=== PATIENT | female | born 1935 | race Caucasian/White ===

== ENCOUNTER 2016-12-29 14:34 | Inpatient (IN) | payer MEDICARE, OTHER ==
[~2016-12-29] VITALS: Ht 162.6 cm; Wt 39.2 kg
[~2016-12-29 14:34] MED LIST: ACET5SOL5 PO; ASPI81TA82 PO
[2016-12-29 14:36] VITALS: BP 116/59; PULSE 71; RESP 16; TEMP 98; O2SAT 97
[2016-12-29] MEDS ORDERED: SODIUM CHLOR 0.9% 1000 ML INJ 1,000 ML IV SCH (14:54)
[2016-12-29 15:00] VITALS: O2SAT 97
[2016-12-29] MEDS ORDERED: SODIUM CHLORIDE 0.9% FLUSH 5 ML FLUSH IV FLUSH PRN (15:00)
--- NOTE | 2016-12-29 15:02 | PD ---
HPI Chief Complaint: General Weakness Time Seen by Provider: 14:44 Travel History International Travel<30 days: No Contact w/Intl Traveler<30days: No History of Present Illness HPI Patient is a cachectic elderly female appearing older than stated age who presents the emergency department with daughter for generalized weakness. Daughter states that patient and her both have some degree of dementia. They live independently, though certainly are not thriving. They've attempted to get help for the 2 of them at home, but unsuccessfully given patient's 's paranoia. Patient herself, has been increasingly withdrawn and confused over the last 2 weeks. She is alert to self only, but not place or time. Daughter states at baseline she may not know the year, Pres. but would certainly know where she is. She's had several falls recently, unclear whether she hit her head but patient does complain of pain to the left occipital parietal region. Daughter notes patient was incontinent of stool and urine and laying in bed when she came to check on her today. Patient denies any complaints at this time. PFSH Past Medical History Hx Anticoagulant Therapy: No Arthritis: No Asthma: No Autoimmune Disease: No Blood Disorders: No Heart Rhythm Problems: No Cancer: No Cardiovascular Problems: Yes (CHOL) High Cholesterol: No Chemotherapy: No Chest Pain: No Congestive Heart Failure: No COPD: No Cerebrovascular Accident: No Diabetes: No Diminished Hearing: No Endocrine: No Gastrointestinal Disorders: No GERD: No Glaucoma: No Genitourinary: Yes Headaches: No Hepatitis: No Hiatal Hernia: No Hypertension: No Immune Disorder: No Implanted Vascular Access Dvce: No Musculoskeletal: No Neurologic: No Psychiatric: No Reproductive: No Respiratory: No Migraines: No Myocardial Infarction: No Radiation Therapy: No Seizures: No Sickle Cell Disease: No Sleep Apnea: No Thyroid Disease: No Ulcer: No ?: Not Past Surgical History Abdominal Surgery: No AICD: No Appendectomy: No Arteriovenous Shunt: No Cardiac Surgery: No Cholecystectomy: No Ear Surgery: No Endocrine Surgery: No Eye Surgery: No Genitourinary Surgery: No Gynecologic Surgery: No Insulin Pump: No Joint Replacement: No Oral Surgery: No Pacemaker: No Thoracic Surgery: No Social History Alcohol Use: No Tobacco Use: No Substance Use: No Allergies-Medications (Allergen,Severity, Reaction): Coded Allergies: No Known Allergies (Verified , 12/29/16) Reported Meds & Prescriptions Reported Meds & Active Scripts Active No Active Prescriptions or Reported Medications Review of Systems ROS Limitations: Altered Mental Status, Poor Historian Physical Exam Exam Limitations: Altered Mental Status, Poor Historian Narrative GENERAL: Cachectic elderly female with muscle wasting in no acute distress SKIN: Ecchymosis on the back, right shoulder of varying ages HEAD: Contusion to the left occipital parietal scalp Normocephalic. EYES: Pupils equal and round. No scleral icterus. No injection or drainage. ENT: No nasal bleeding or discharge. Mucous membranes dry NECK: Supple CARDIOVASCULAR: Regular rate and rhythm. No murmur appreciated. RESPIRATORY: No accessory muscle use. Clear to auscultation. Breath sounds equal bilaterally. GASTROINTESTINAL: Abdomen soft, minimal suprapubic tenderness to palpation without rebound or guarding, scaphoid abdomen MUSCULOSKELETAL: Moves all extremities normally. Dried old-appearing stool caked to the inside of the left leg. Movement of the extremities is intact, though weak with 4-5 strength diffusely. NEUROLOGICAL: Awake and alert to self only, does not know where she is, date, president. Motor grossly within normal limits. Normal speech. PSYCHIATRIC: Different given mental status Data Data Last Documented VS Vital Signs Date Time Temp Pulse Resp B/P Pulse Ox O2 Delivery O2 Flow Rate FiO2 12/29/16 15:00 97 Room Air 12/29/16 15:00 71 12/29/16 14:36 98.0 16 116/59 Orders Electrocardiogram (12/29/16 14:54) Ammonia (12/29/16 14:54) Complete Blood Count With Diff (12/29/16 14:54) Comprehensive Metabolic Panel (12/29/16 14:54) Creatine Kinase (Cpk) (12/29/16 14:54) Troponin I (12/29/16 14:54) Thyroid Stimulating Hormone (12/29/16 14:54) Urinalysis - C+S If Indicated (12/29/16 14:54) Ct Brain W/O Iv Contrast(Rout) (12/29/16 14:54) Ecg Monitoring (12/29/16 14:54) Iv Access Insert/Monitor (12/29/16 14:54) Cath For Specimen (12/29/16 14:54) Oximetry (12/29/16 14:54) Sodium Chloride 0.9% Flush (Ns Flush) (12/29/16 15:00) Sodium Chlor 0.9% 1000 Ml Inj (Ns 1000 M (12/29/16 14:54) Case Management Consult (12/29/16 ) Labs Laboratory Tests Test 12/29/16 12/29/16 14:50 14:55 White Blood Count 11.1 TH/MM3 Red Blood Count 3.86 MIL/MM3 Hemoglobin 12.3 GM/DL Hematocrit 36.0 % Mean Corpuscular Volume 93.2 FL Mean Corpuscular Hemoglobin 31.8 PG Mean Corpuscular Hemoglobin 34.1 % Concent Red Cell Distribution Width 12.5 % Platelet Count 286 TH/MM3 Mean Platelet Volume 8.9 FL Neutrophils (%) (Auto) 88.9 % Lymphocytes (%) (Auto) 8.3 % Monocytes (%) (Auto) 2.3 % Eosinophils (%) (Auto) 0.1 % Basophils (%) (Auto) 0.4 % Neutrophils # (Auto) 9.9 TH/MM3 Lymphocytes # (Auto) 0.9 TH/MM3 Monocytes # (Auto) 0.3 TH/MM3 Eosinophils # (Auto) 0.0 TH/MM3 Basophils # (Auto) 0.0 TH/MM3 CBC Comment DIFF FINAL Differential Comment Sodium Level 142 MEQ/L Potassium Level 2.8 MEQ/L Chloride Level 99 MEQ/L Carbon Dioxide Level 31.6 MEQ/L Anion Gap 11 MEQ/L Blood Urea Nitrogen 37 MG/DL Creatinine 1.60 MG/DL Estimat Glomerular Filtration 31 ML/MIN Rate Random Glucose 190 MG/DL Calcium Level 9.1 MG/DL Total Bilirubin 0.6 MG/DL Aspartate Amino Transf 20 U/L (AST/SGOT) Alanine Aminotransferase 15 U/L (ALT/SGPT) Ammonia 10 MCMOL/L Total Protein 6.9 GM/DL Albumin 3.3 GM/DL [facility] Medical Decision Making Medical Screen Exam Complete: Yes Emergency Medical Condition: Yes Medical Record Reviewed: Yes Differential Diagnosis 81-year-old female here with generalized weakness, confusion over the last 2 weeks. Patient is cachectic with muscle wasting, dry mucous membranes and very subtle bruising on exam. Differential includes closed head injury, skull fracture, ICH, dehydration, electrolyte abnormality, UTI, hyperammonemia, arrhythmia, thyroid abnormality, dementia. Narrative Course Patient placed on monitor, IV established and blood obtained. Given 1 L normal saline bolus. Twelve-lead EKG showed sinus rhythm without notable ST abnormalities, sinus arrhythmia. CBC, CMP, ammonia, CPK, troponin, TSH, urinalysis were ordered,. CT of the brain ordered. Results of these remain pending at time of dictation. Case management consulted to assist patient's daughter with coordinating care for patient and patient's who is also demented and unsafe to be at home independently. However for the time being daughter will be with patient's to assist him pending RODNEY. Patient signed out to oncoming provider waiting [facility] admission for altered mental status. Scripts No Active Prescriptions or Reported Meds Elle Souza MD December 29, 2016 15:02
[2016-12-29 15:27] LABS: AUTOMATED NEUTROPHIL # 9.9 TH/MM3 (1.8-7.7); BASOPHIL % 0.4 % (0.0-2.0); EOSINOPHIL % 0.1 % (0.0-4.0); HEMO FLAGS DIFF FINAL; LYMPH % 8.3 % (9.0-44.0); LYMPHOCYTE # 0.9 TH/MM3 (1.0-4.8); MEAN CELL VOLUME 93.2 FL (80.0-100.0); MEAN CORPUSCULAR HEMOGLOBIN 31.8 PG (27.0-34.0); MEAN CORPUSCULAR HGB CONC 34.1 % (32.0-36.0); MONO % 2.3 % (0.0-8.0); NEUT % 88.9 % (16.0-70.0); PLATELET COUNT 286 TH/MM3 (150-450); RED BLOOD COUNT 3.86 MIL/MM3 (4.00-5.30); RED CELL DISTRIBUTION WIDTH 12.5 % (11.6-17.2); WHITE BLOOD COUNT 11.1 TH/MM3 (4.0-11.0)
[2016-12-29 15:35] LABS: ALT (GPT) 15 U/L (10-53); ANION GAP 11 MEQ/L (5-15); AST (GOT) 20 U/L (15-37); BICARBONATE 31.6 MEQ/L (21.0-32.0); BLOOD UREA NITROGEN 37 MG/DL (7-18); CHLORIDE 99 MEQ/L (98-107); GLOMERULAR FILTRATION RATE 31 ML/MIN (>89); SODIUM (NA) 142 MEQ/L (136-145); TOTAL BILIRUBIN ADULT 0.6 MG/DL (0.2-1.0)
[2016-12-29 15:37] LABS: POTASSIUM 2.8 MEQ/L (3.5-5.1)
[2016-12-29 15:42] VITALS: BP 128/65; PULSE 58; RESP 18; O2SAT 98
[2016-12-29 15:43] LABS: ALKALINE PHOSPHATASE 167 U/L (45-117)
[2016-12-29 15:45] LABS: CREATINE KINASE 78 U/L (26-192)
--- NOTE | 2016-12-29 15:45 | RADHPO ---
EXAM DATE/TIME: 12/29/2016 15:24 [facility] COMPARISON: No previous studies available for comparison. INDICATIONS : Altered mental status. Weakness and confusion x 2 weeks. RADIATION DOSE: 63.41 CTDIvol (mGy) MEDICAL HISTORY : Chronic obstructive pulmonary disease. SURGICAL HISTORY : Cholecystectomy. ENCOUNTER: Initial ACUITY: 2 weeks PAIN SCALE: 0/10 LOCATION: cranial TECHNIQUE: Multiple contiguous axial images were obtained of the head. Using automated exposure control and adjustment of the mA and/or kV according to patient size, radiation dose was kept as low as reasonably achievable to obtain optimal diagnostic quality images. FINDINGS: CEREBRUM: The ventricles are normal for age. No evidence of midline shift, mass lesion, hemorrha ge or acute infarction. No extra-axial fluid collections are seen. POSTERIOR FOSSA: The cerebellum and brainstem are intact. The 4th ventricle is midline. The cer ebellopontine angle is unremarkable. EXTRACRANIAL: The visualized portion of the orbits is intact. SKULL: The calvaria is intact. No evidence of skull fracture. CONCLUSION: Negative for acute process. Jack Evans MD FACR on December 29, 2016 at 15:42 Board Certified Radiologist. This report was verified electronically.
--- NOTE | 2016-12-29 15:57 | PD ---
Physical Exam Date Seen by Provider: December 29, 2016 Time Seen by Provider: 15:55 Narrative This 81-year-old female presented with increasing confusion and weight loss. She lives with her who apparently has some dementia. Health workers tried to enter the house today and the would not let them and area the patient does not take any medication. She has been on medication the past with the daughter ordered as. The patient does not know what it is. She is a patient of Dr. Street. The daughter has noted significant weight loss and increasing confusion. She says she does not eat very well. Patient was seen initially by Dr. Stevens and complete workup was ordered. 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 On examination she is quite cachectic. Mucous membranes are dry. She is not oriented to time or place. Data Data Last Documented VS Vital Signs Date Time Temp Pulse Resp B/P Pulse Ox O2 Delivery O2 Flow Rate FiO2 12/29/16 15:42 58 18 128/65 98 Room Air 12/29/16 14:36 98.0 Orders Electrocardiogram (12/29/16 14:54) Ammonia (12/29/16 14:54) Complete Blood Count With Diff (12/29/16 14:54) Comprehensive Metabolic Panel (12/29/16 14:54) Creatine Kinase (Cpk) (12/29/16 14:54) Troponin I (12/29/16 14:54) Thyroid Stimulating Hormone (12/29/16 14:54) Urinalysis - C+S If Indicated (12/29/16 14:54) Ct Brain W/O Iv Contrast(Rout) (12/29/16 14:54) Ecg Monitoring (12/29/16 14:54) Iv Access Insert/Monitor (12/29/16 14:54) Cath For Specimen (12/29/16 14:54) Oximetry (12/29/16 14:54) Sodium Chloride 0.9% Flush (Ns Flush) (12/29/16 15:00) Sodium Chlor 0.9% 1000 Ml Inj (Ns 1000 M (12/29/16 14:54) Case Management Consult (12/29/16 ) Potassium Chloride (Kcl) (12/29/16 16:00) Chest, Single Ap (12/29/16 15:57) Labs Laboratory Tests Test 12/29/16 12/29/16 14:50 14:55 White Blood Count 11.1 TH/MM3 Red Blood Count 3.86 MIL/MM3 Hemoglobin 12.3 GM/DL Hematocrit 36.0 % Mean Corpuscular Volume 93.2 FL Mean Corpuscular Hemoglobin 31.8 PG Mean Corpuscular Hemoglobin 34.1 % Concent Red Cell Distribution Width 12.5 % Platelet Count 286 TH/MM3 Mean Platelet Volume 8.9 FL Neutrophils (%) (Auto) 88.9 % Lymphocytes (%) (Auto) 8.3 % Monocytes (%) (Auto) 2.3 % Eosinophils (%) (Auto) 0.1 % Basophils (%) (Auto) 0.4 % Neutrophils # (Auto) 9.9 TH/MM3 Lymphocytes # (Auto) 0.9 TH/MM3 Monocytes # (Auto) 0.3 TH/MM3 Eosinophils # (Auto) 0.0 TH/MM3 Basophils # (Auto) 0.0 TH/MM3 CBC Comment DIFF FINAL Differential Comment Sodium Level 142 MEQ/L Potassium Level 2.8 MEQ/L Chloride Level 99 MEQ/L Carbon Dioxide Level 31.6 MEQ/L Anion Gap 11 MEQ/L Blood Urea Nitrogen 37 MG/DL Creatinine 1.60 MG/DL Estimat Glomerular Filtration 31 ML/MIN Rate Random Glucose 190 MG/DL Calcium Level 9.1 MG/DL Total Bilirubin 0.6 MG/DL Aspartate Amino Transf 20 U/L (AST/SGOT) Alanine Aminotransferase 15 U/L (ALT/SGPT) Alkaline Phosphatase 167 U/L Ammonia 10 MCMOL/L Total Creatine Kinase 78 U/L Troponin I 0.06 NG/ML Total Protein 6.9 GM/DL Albumin 3.3 GM/DL Thyroid Stimulating Hormone 1.250 uIU/ML [address] [place] [address] Medical Record Reviewed: Yes Supervised Visit with ROSALIE: Yes Differential Diagnosis Differential includes occult carcinoma, dehydration, electrolyte imbalance Narrative Course CT scan has been read as negative. Ammonia level is 10. TSH is 1.25. Hemoglobin is 12.3. White count 11,000. Her sodium is 142 with potassium of 2.8. BUNs is 37 with creatinine of 1.6. Her blood glucose is 190. Patient is being given intravenous fluids and oral potassium. She is clearly dehydrated. Patient has had urinary tract infection in the past and we are trying to get urine but the patient has refused catheterization. Diagnosis Primary Impression: Dehydration Additional Impression: Altered mental status Qualified Code: R41.0 - Disorientation Scripts No Active Prescriptions or Reported Meds Elpidio Macedo MD December 29, 2016 15:57
[2016-12-29] MEDS ORDERED: POTASSIUM CHLORIDE 20 MEQ CONTROLLED RELEASE TAB PO ONE (16:00)
[2016-12-29 16:42] VITALS: BP 155/57; PULSE 68; RESP 18; O2SAT 97
[2016-12-29] MEDS ORDERED: ONDANSETRON HCL 4 MG/2 ML VIAL IVP PRN (16:45)
[2016-12-29] MEDS ORDERED: SODIUM CHLORIDE 0.9% FLUSH 10 ML FLUSH IV FLUSH PRN (16:45)
[2016-12-29] MEDS ORDERED: ACETAMINOPHEN 325 MG TAB PO PRN (16:45)
[2016-12-29] MEDS ORDERED: NALOXONE HCL 0.4 MG/ML AMP IV PRN (16:45)
[2016-12-29 16:48] LABS: BLOOD, URINE NEG (NEG); GLUCOSE,URINE NEG (NEG); KETONE, URINE TRACE mg/dL (NEG); NITRITE,URINE NEG (NEG)
[2016-12-29 16:50] LABS: URINE COLOR YELLOW (YELLW/STRAW)
[2016-12-29 16:51] LABS: CULTURE IF INDICATED CATH CULTURE NOT IND; RENAL EPITHELIAL CELLS 0-5 /hpf; SQUAMOUS EPITHELIAL CELL URINE 0-5 /hpf (0-5); WBC, URINE 0-2 /hpf (0-5)
[2016-12-29 16:52] LABS: COMMENT (UR) CATH-CULT NOT IND
--- NOTE | 2016-12-29 16:53 | RADHPO ---
EXAM DATE/TIME: 12/29/2016 16:43 [facility] COMPARISON: CHEST SINGLE AP, August 30, 2015, 18:34. INDICATIONS : Weakness, confusion, and shortness of breath. MEDICAL HISTORY : Chronic obstructive pulmonary disease. SURGICAL HISTORY : Cholecystectomy. ENCOUNTER: Initial ACUITY: 2 weeks PAIN SCORE: 0/10 LOCATION: Bilateral chest FINDINGS: A single view of the chest demonstrates the lungs to be symmetrically aerated without evidence of mas s, infiltrate or effusion. The cardiomediastinal contours are unremarkable. Osseous structures are intact. CONCLUSION: 1. No acute cardiopulmonary disease. Bradley Miller MD on December 29, 2016 at 16:48 Board Certified Radiologist. This report was verified electronically.
[2016-12-29] MEDS: SODIUM CHLOR 0.9% 1000 ML INJ 1,000 ML IV SCH (17:00)
[2016-12-29] MEDS: HEPARIN SODIUM - SQ 10,000 UNITS/ML VIAL SQ SCH (17:01)
[2016-12-29 20:14] VITALS: BP 113/67; PULSE 62; RESP 12; TEMP 98.3; O2SAT 94
[2016-12-29] MEDS: SODIUM CHLORIDE 0.9% FLUSH 10 ML FLUSH IV FLUSH SCH (21:00)
[2016-12-30 01:23] VITALS: PULSE 63
[2016-12-30] MEDS: HEPARIN SODIUM - SQ 10,000 UNITS/ML VIAL SQ SCH ×2 (06:04→17:32)
[2016-12-30] MEDS: SODIUM CHLOR 0.9% 1000 ML INJ 1,000 ML IV SCH ×2 (06:08→19:24)
[2016-12-30 07:41] LABS: AUTOMATED NEUTROPHIL # 6.4 TH/MM3 (1.8-7.7); BASOPHIL # 0.2 TH/MM3 (0-0.2); BASOPHIL % 2.1 % (0.0-2.0); EOSINOPHIL % 0.3 % (0.0-4.0); HEMATOCRIT 30.1 % (35.0-46.0); LYMPH % 13.8 % (9.0-44.0); LYMPHOCYTE # 1.1 TH/MM3 (1.0-4.8); MEAN CELL VOLUME 92.9 FL (80.0-100.0); MEAN CORPUSCULAR HGB CONC 33.4 % (32.0-36.0); MONO % 4.1 % (0.0-8.0); NEUT % 79.7 % (16.0-70.0); PLATELET COUNT 222 TH/MM3 (150-450); RED BLOOD COUNT 3.25 MIL/MM3 (4.00-5.30); RED CELL DISTRIBUTION WIDTH 12.4 % (11.6-17.2)
[2016-12-30 07:48] LABS: HEMO FLAGS DIFF FINAL
[2016-12-30 08:00] VITALS: BP 138/69; PULSE 59; RESP 20; TEMP 97.8; O2SAT 97
[2016-12-30 08:19] LABS: BICARBONATE 28.3 MEQ/L (21.0-32.0)
[2016-12-30 08:21] LABS: POTASSIUM 2.5 MEQ/L (3.5-5.1)
[2016-12-30] MEDS: SODIUM CHLORIDE 0.9% FLUSH 10 ML FLUSH IV FLUSH SCH ×2 (09:00→21:00)
[2016-12-30] MEDS: POTASSIUM CHLOR 20 MEQ PREMIX 100 ML IV SCH ×4 (11:21→17:33)
[2016-12-30 12:00] VITALS: BP 178/83; PULSE 67; RESP 20; TEMP 99; O2SAT 98
[2016-12-30] MEDS: cefTRIAXone 1,000 MG/NS 100 ML IV SCH ×2 (12:28)
--- NOTE | 2016-12-30 13:06 | MH ---
cc: CARLOS ORELLANA MD DATE OF ADMISSION: 12/29/2016 CHIEF COMPLAINT Generalized weakness, altered mental status. HISTORY OF PRESENT ILLNESS This is a 81-year-old female, very cachexic, with a history of hyperlipidemia, no history of any surgery, not taking any medication, came to the ER with altered mental status. She lives with her and she is having generalized weakness. She and her both live together and they have some degree of dementia. They live independently, though certainly are not thriving. They attempted to get help for the two of them at home but unsuccessfully given the patient's 's paranoia. The patient herself has been increasingly withdrawn and confused over the past two weeks. She is alert to self only but not to place or person or time. Daughter states that is the baseline. She does not know the year. She just knows her name. She did not recognize the family member well. She had several falls recently, unclear whether she hit her head but the patient does complain of pain to the left occipitoparietal region. Daughter noticed that the patient was incontinent of urine and stool, laying on the bed when she came to check her yesterday. The patient herself is confused and unable to report any history. All the history is obtained from the daughter at the bedside. Other than that nothing significant. PAST MEDICAL AND SURGICAL HISTORY As dictated above. SOCIAL HISTORY No smoking, drinking or taking any drugs. Lives at home with her . FAMILY HISTORY Nothing significant. ALLERGIES NO KNOWN DRUG ALLERGIES. MEDICATIONS None. REVIEW OF SYSTEMS Unable to obtain. Per family history, the review of system is confusion and urinary and fecal incontinence. PHYSICAL EXAMINATION GENERAL: This is a 81-year-old female sitting on the bed, not in acute distress. She is cachexic. VITAL SIGNS: Temperature 97.8, heart rate 59, respirations 20, blood pressure 138/69, O2 saturation 97% room air. HEAD, EYES, EARS, NOSE AND THROAT: Normocephalic, atraumatic. Extraocular movements intact. Oral mucosa moist. NECK: Neck is supple. No visible thyromegaly or neck mass. Trachea central. CARDIOVASCULAR SYSTEM: Regular rate and rhythm. LUNGS: Respiration is clear to auscultation bilaterally. ABDOMEN: Soft, nontender. Bowel sounds audible. EXTREMITIES: No cyanosis, no clubbing. Full range of motion of all extremities. NEUROLOGIC: Awake and alert to herself only, does not know where she is, what is the date, pleasant. Gross motor intact. Normal speech. SKIN: Warm and dry. PSYCHIATRIC: The patient is cooperative. Generalized she is cachexic. LABORATORY DATA CBC showed WBC count was 11.1 and now it is 8.0, hemoglobin was 12.3 and now is 10.1. BMP shows sodium was 143, potassium is low at 2.5, BUN 21, calcium 7.6 low, alkaline phosphatase 167 high, ammonia level 10, troponin-I is 0.06, total protein 6.9, albumin 3.3, TSH 1.25, troponin-I 0.03. Urine examination showed trace of ketones, 30 protein, moderate bilirubin, culture not indicated. IMAGING CT brain done and shows nothing acute. Chest x-ray was done shows no acute cardiomegaly, no acute process. ASSESSMENT AND PLAN This is an 81-year-old female with diagnosed with - 1. Altered mental status with urinary and fecal incontinence. CT brain does not show anything acute. Neurology consulted. Neuro checks every 6 hours. Check metabolic workup including YOJANA, ESR, B12, folic acid, TSH, free T4 levels. 2. Mild leukocytosis which has resolved. 3. Anemia. Check iron study, B12 and folic acid level. 4. Hypokalemia. We will replace potassium and check magnesium level. 5. Renal insufficiency which has improved. 6. DVT prophylaxis. SCDs. 7. GI prophylaxis. Protonix 40 mg p.o. daily. 8. We are going to manage the patient on a daily basis and make recommendations on a daily basis. Carlos Orellana MD EA/[facility]UG[place] /11:27 AM /11:58 AM
[2016-12-30 16:00] VITALS: BP 139/73; PULSE 82; RESP 20; TEMP 95.8; O2SAT 97
--- NOTE | 2016-12-30 16:01 | EKG ---
Date Performed: 12/29/2016 Time Performed: 15:09:44 PTAGE: 81 years EKG: Sinus arrhythmia with PVC(s) rSr'(V1) - probable normal variant Abnormal ECG Compared to pr ior tracing no significant change PREVIOUS TRACING : 08/30/2015 15.44 DOCTOR: Madonna Posey Interpretating Date/Time 12/30/2016 16:00:31
[2016-12-30 20:15] VITALS: PULSE 95
[2016-12-30 21:19] VITALS: BP 130/60; PULSE 84; RESP 18; TEMP 99.4; O2SAT 96
[2016-12-31] VITALS (7 sets, daily range): BP systolic 133–158; BP diastolic 69–91; PULSE 61–78; RESP 12–20; TEMP 96.7–98.9; O2SAT 95–99
[2016-12-31] MEDS: HEPARIN SODIUM - SQ 10,000 UNITS/ML VIAL SQ SCH ×2 (06:04→17:00)
[2016-12-31] MEDS: SODIUM CHLOR 0.9% 1000 ML INJ 1,000 ML IV SCH ×3 (08:44→22:04)
[2016-12-31 08:57] LABS: AUTOMATED NEUTROPHIL # 6.1 TH/MM3 (1.8-7.7); BASOPHIL # 0.1 TH/MM3 (0-0.2); BASOPHIL % 0.7 % (0.0-2.0); EOSINOPHIL % 0.3 % (0.0-4.0); HEMATOCRIT 32.7 % (35.0-46.0); HEMO FLAGS DIFF FINAL; LYMPH % 20.2 % (9.0-44.0); LYMPHOCYTE # 1.6 TH/MM3 (1.0-4.8); MEAN CELL VOLUME 91.8 FL (80.0-100.0); MEAN CORPUSCULAR HGB CONC 33.8 % (32.0-36.0); MONO % 5.1 % (0.0-8.0); NEUT % 73.7 % (16.0-70.0); PLATELET COUNT 213 TH/MM3 (150-450); RED BLOOD COUNT 3.56 MIL/MM3 (4.00-5.30); RED CELL DISTRIBUTION WIDTH 12.4 % (11.6-17.2); WHITE BLOOD COUNT 8.2 TH/MM3 (4.0-11.0)
[2016-12-31] MEDS: SODIUM CHLORIDE 0.9% FLUSH 10 ML FLUSH IV FLUSH SCH ×2 (09:00→21:00)
[2016-12-31 09:05] LABS: MAGNESIUM 1.7 MG/DL (1.5-2.5)
[2016-12-31 09:20] LABS: ALKALINE PHOSPHATASE 150 U/L (45-117); ALT (GPT) 19 U/L (10-53); ANION GAP 8 MEQ/L (5-15); AST (GOT) 28 U/L (15-37); BICARBONATE 28.9 MEQ/L (21.0-32.0); BLOOD UREA NITROGEN 8 MG/DL (7-18); CHLORIDE 102 MEQ/L (98-107); GLOMERULAR FILTRATION RATE 98 ML/MIN (>89); SODIUM (NA) 139 MEQ/L (136-145); TOTAL BILIRUBIN ADULT 0.8 MG/DL (0.2-1.0)
[2016-12-31 09:21] LABS: CREATINE KINASE 71 U/L (26-192)
[2016-12-31 09:38] LABS: POTASSIUM 2.9 MEQ/L (3.5-5.1)
--- NOTE | 2016-12-31 09:49 | HHI.PR ---
Subjective History of Present Illness Patient confused d/w and daughter at bed side have low potassium will replace d/w NATHANAEL Randle. Review of Systems Constitutional Constitutional Remarks unable to obtain. Vitals/Results Intake & Output 12/30/16 12/30/16 12/31/16 15:00 23:00 07:00 Intake Total 975 ml 352 ml 606 ml Output Total 150 ml 250 ml Balance 825 ml 102 ml 606 ml Intake Oral 450 ml IV Total 525 ml 352 ml 606 ml Output Urine Total 150 ml 250 ml # Voids 5 1 # Bowel Movements 3 1 Vital Signs Vital Signs Date Time Temp Pulse Resp B/P Pulse Ox O2 Delivery O2 Flow Rate FiO2 12/31/16 08:00 96.7 69 18 155/82 97 12/31/16 05:11 97.7 78 12 144/91 95 12/31/16 00:49 97.9 74 12 158/83 98 12/30/16 21:19 99.4 84 18 130/60 96 12/30/16 20:15 95 12/30/16 16:00 95.8 82 20 139/73 97 12/30/16 12:00 99.0 67 20 178/83 98 CBC/BMP: 12/31/16 0804 12/31/16 0804 Lab Results Laboratory Tests Test 12/31/16 08:04 White Blood Count 8.2 TH/MM3 Red Blood Count 3.56 MIL/MM3 Hemoglobin 11.0 GM/DL Hematocrit 32.7 % Mean Corpuscular Volume 91.8 FL Mean Corpuscular Hemoglobin 31.0 PG Mean Corpuscular Hemoglobin 33.8 % Concent Red Cell Distribution Width 12.4 % Platelet Count 213 TH/MM3 Mean Platelet Volume 9.5 FL Neutrophils (%) (Auto) 73.7 % Lymphocytes (%) (Auto) 20.2 % Monocytes (%) (Auto) 5.1 % Eosinophils (%) (Auto) 0.3 % Basophils (%) (Auto) 0.7 % Neutrophils # (Auto) 6.1 TH/MM3 Lymphocytes # (Auto) 1.6 TH/MM3 Monocytes # (Auto) 0.4 TH/MM3 Eosinophils # (Auto) 0.0 TH/MM3 Basophils # (Auto) 0.1 TH/MM3 CBC Comment DIFF FINAL Differential Comment Sodium Level 139 MEQ/L Potassium Level 2.9 MEQ/L Chloride Level 102 MEQ/L Carbon Dioxide Level 28.9 MEQ/L Anion Gap 8 MEQ/L Blood Urea Nitrogen 8 MG/DL Creatinine 0.59 MG/DL Estimat Glomerular Filtration 98 ML/MIN Rate Random Glucose 93 MG/DL Calcium Level 8.1 MG/DL Phosphorus Level 1.3 MG/DL Magnesium Level 1.7 MG/DL Total Bilirubin 0.8 MG/DL Aspartate Amino Transf 28 U/L (AST/SGOT) Alanine Aminotransferase 19 U/L (ALT/SGPT) Alkaline Phosphatase 150 U/L Total Creatine Kinase 71 U/L Total Protein 6.0 GM/DL Albumin 2.8 GM/DL Microbiology Microbiology 12/30/16 Urine Culture, Received Pending Physical Exam General General Appearance: No Acute Distress, Comfortable Eyes Eye Exam: Pupils Equal, Pupils Reactive, Sclera White, Extraocular Movement Intact Throat Throat Exam: Oral Mucosa [place] & Moist, Oral Pharynx Normal Neck Neck Exam: Neck Supple, Trachea Midline Pulmonary Resp Exam: Clear Bilaterally, Breath Sounds Equal, No Distress Cardiology CV Exam: Regular, Normal Sinus Rhythm Gastrointestinal/Abdomen GI Exam: Soft, Non-Tender, Bowel Sounds Present Integumentary Skin Exam: Clear, Warm, Dry, Intact Extremeties Extremities Exam: No Edema Neurologic Neuro Exam: Alert Neuro Remarks confused/ demented. VTE Prophylaxis VTE Prophylaxis Device: SCDs PUD Prophylasis PUD Prophylaxis: Protonix Assessment/Plan Assessment/Plan ASSESSMENT AND PLAN This is an 81-year-old female with diagnosed with - 1. Altered mental status with urinary and fecal incontinence. CT brain does not show anything acute. Neurology consulted. Neuro checks every 6 hours. Check metabolic workup including YOJANA, ESR, B12, folic acid, TSH, free T4 levels...IN PROGRESS. 2. Mild leukocytosis which has resolved. 3. Anemia. Check iron study, B12 and folic acid level. 4. Hypokalemia. We will replace potassium and checked magnesium level....1.3 and then 1.7 will replace. 5. Renal insufficiency which has improved. 6. DVT prophylaxis. SCDs. 7. GI prophylaxis. Protonix 40 mg p.o. daily. 8. We are going to manage the patient on a daily basis and make recommendations on a daily basis. Discussed Condition with: Spouse, Daughter Carlos Nayak MD December 31, 2016 09:49
[2016-12-31 10:59] LABS: FERRITIN 498 NG/ML (8-252); FREE T4 1.15 NG/DL (0.76-1.46); TRANSFERRIN IRON PROFILE 136 MG/DL (200-360)
[2016-12-31] MEDS: cefTRIAXone 1,000 MG/NS 100 ML IV SCH ×2 (11:27)
[2016-12-31] MEDS: POTASSIUM CHLOR 20 MEQ PREMIX 100 ML IV SCH ×4 (11:29→17:00)
[2016-12-31] MEDS: MAGNESIUM SULFATE 1 GM PREMIX 100 ML IV SCH ×2 (11:30→12:00)
[2017-01-01 00:39] VITALS: BP 151/71; PULSE 64; RESP 16; TEMP 95.8; O2SAT 96
[2017-01-01] MEDS: SODIUM CHLOR 0.9% 1000 ML INJ 1,000 ML IV SCH ×4 (02:57→22:06)
[2017-01-01 04:43] VITALS: BP 108/57; PULSE 58; RESP 16; TEMP 98.7; O2SAT 98
[2017-01-01] MEDS: HEPARIN SODIUM - SQ 10,000 UNITS/ML VIAL SQ SCH ×2 (05:16→17:58)
--- NOTE | 2017-01-01 06:28 | MB ---
cc: ZAIRA JEAN-BAPTISTE DATE OF CONSULTATION 12/31/2016 REASON FOR CONSULTATION Altered mental status. HISTORY OF PRESENT ILLNESS Ms. Crystal is a an 81-year-old female who was during the encounter sleepy, nonverbal with a baseline of dementia, hence the medical data is obtained from review of the medical records and RN. The patient is cachectic, looks older than she her stated age, presented to the [facility] ER with her daughter because of generalized weakness. Her also is demented. They both live independently, apparently not thriving as there is paranoia as well as the daughter attempted to get help for him at home, the refused as per daughter. The patient has been increasingly with withdrawn and confused over the last two weeks. At baseline she is alert to self only but not to place or time. She has no recognition of her family members and she sustained several falls. The daughter also reports that she noticed that the patient is incontinent of urine and stool when she came to check on her yesterday. REVIEW OF SYSTEMS Unable to obtain. PAST MEDICAL HISTORY Unable to obtain past medical history but then according to review of medical records - 1. Hypercholesterolemia. 2. Dementia. PAST SURGICAL HISTORY Unable to obtain but as per review of medical records unremarkable. SOCIAL HISTORY Unable to obtain but review of medical records reveals no alcohol, tobacco or substance abuse. ALLERGIES No known allergies. MEDICATIONS None. PHYSICAL EXAMINATION GENERAL: The patient is frail, cachectic. Lays in bed, sleeping most of the time Not cooperative, not a good historian. HEENT: Atraumatic, normocephalic. Pale, cachectic-looking. Arousable but does not want to speak, mumbles a few words, yes or no. She followed simple commands like - "Lift your arm, open your eyes, close your eyes." Slow in moving and responding to commands. NECK: Supple. No carotid bruits. CARDIOVASCULAR: Regular rate and rhythm. LUNGS: Clear to auscultation. ABDOMEN: Soft, nontender. EXTREMITIES: No cyanosis or clubbing but generalized wasting and cachectic. NEUROLOGIC: Awake, oriented to self, not to time or person. Mumbles a few words. Follows simple commands - "Open and close your eyes." She is slow in movements. Pupils are 3-mm, bilateral equal, reacting to light. No gaze deviation. No facial palsy. Bilateral upper extremity - increased tone, cogwheel rigidity. Unable to accurately assess muscle strength, sensation, cerebellar function because of lack of cooperation and her baseline dementia. Generalized muscle wasting. No fasciculations. Hypertonia upper and lower extremities. LABORATORY DATA CBC - White blood cell 0.1, hemoglobin 12.3, sodium 143, potassium very low at 2.5, BUN 21, calcium very low at 7.6, elevated alkaline phosphatase was 67, ammonia 10, total protein 6.9. Urinalysis showed trace of ketones, 30-[address] bilirubin. DIAGNOSTIC IMAGING Head CT was negative for acute intracranial process. DIAGNOSTIC IMPRESSION 1. Dementia. 2. Severe cognitive impairment. 3. Cachexia. Patient with generalized weakness and loss of muscle bulk with slow mobility. 4. Electrolyte derangement. 5. Anemia. PLAN 1. In light of the severe dementia and cognitive and motor dysfunction the nonfocal examination, unremarkable brain imaging, the patient needs placement as she lives with her demented who is not capable of taking care of her. 2. Replenish electrolytes and correction of underlying metabolic abnormality. 3. Fall precautions. 4. PT and OT recommendations are appreciated. 5. DVT prophylaxis, SCDs. 6. GI prophylaxis. Thank you for the opportunity to participate in the care of your patient. Please call for questions. Zaira Jean-Baptiste MD RGO/SSB /11:42 PM /6:16 AM TAMICA
[2017-01-01 08:00] VITALS: BP 127/64; PULSE 59; RESP 16; TEMP 96.9; O2SAT 95
[2017-01-01 08:01] LABS: AUTOMATED NEUTROPHIL # 5.5 TH/MM3 (1.8-7.7); BASOPHIL # 0.1 TH/MM3 (0-0.2); BASOPHIL % 1.6 % (0.0-2.0); EOSINOPHIL # 0.1 TH/MM3 (0-0.4); EOSINOPHIL % 0.9 % (0.0-4.0); HEMATOCRIT 34.7 % (35.0-46.0); HEMO FLAGS DIFF FINAL; LYMPH % 17.3 % (9.0-44.0); LYMPHOCYTE # 1.3 TH/MM3 (1.0-4.8); MEAN CELL VOLUME 94.1 FL (80.0-100.0); MEAN CORPUSCULAR HGB CONC 33.9 % (32.0-36.0); MONO % 5.6 % (0.0-8.0); NEUT % 74.6 % (16.0-70.0); PLATELET COUNT 198 TH/MM3 (150-450); RED BLOOD COUNT 3.69 MIL/MM3 (4.00-5.30); RED CELL DISTRIBUTION WIDTH 12.1 % (11.6-17.2); WHITE BLOOD COUNT 7.4 TH/MM3 (4.0-11.0)
[2017-01-01 08:06] LABS: CHLORIDE 103 MEQ/L (98-107); POTASSIUM 3.4 MEQ/L (3.5-5.1); SODIUM (NA) 139 MEQ/L (136-145)
[2017-01-01 08:10] LABS: ANION GAP 8 MEQ/L (5-15); BICARBONATE 27.9 MEQ/L (21.0-32.0)
[2017-01-01 08:11] LABS: BLOOD UREA NITROGEN 6 MG/DL (7-18)
[2017-01-01 08:14] LABS: ALT (GPT) 15 U/L (10-53); AST (GOT) 18 U/L (15-37); GLOMERULAR FILTRATION RATE 116 ML/MIN (>89)
[2017-01-01 08:15] LABS: TOTAL BILIRUBIN ADULT 0.5 MG/DL (0.2-1.0)
[2017-01-01 08:16] LABS: ALKALINE PHOSPHATASE 138 U/L (45-117)
[2017-01-01] MEDS: SODIUM CHLORIDE 0.9% FLUSH 10 ML FLUSH IV FLUSH SCH ×2 (09:00→21:00)
--- NOTE | 2017-01-01 09:21 | HHI.PR ---
Subjective History of Present Illness Patient confused have low potassium will replace d/w NATHANAEL Torres...discharge planning of elderly patient have dementia and have dementia too unable to take care of her. d/w window caser . Review of Systems Constitutional Constitutional Remarks unable to obtain. Vitals/Results Intake & Output 12/31/16 12/31/16 01/01/17 14:59 22:59 06:59 Intake Total 620 ml 1350 ml Balance 620 ml 1350 ml Intake Oral 120 ml IV Total 500 ml 1350 ml # Voids 4 # Bowel Movements 1 Vital Signs Vital Signs Date Time Temp Pulse Resp B/P Pulse Ox O2 Delivery O2 Flow Rate FiO2 01/01/17 04:43 98.7 58 16 108/57 98 01/01/17 00:39 95.8 64 16 151/71 96 12/31/16 20:47 98.9 63 16 140/73 98 12/31/16 20:25 63 12/31/16 16:00 98.5 70 20 133/69 99 12/31/16 12:00 98.2 61 20 137/78 98 CBC/BMP: 01/01/17 0655 01/01/17 0655 Lab Results Laboratory Tests Test 01/01/17 06:55 White Blood Count 7.4 TH/MM3 Red Blood Count 3.69 MIL/MM3 Hemoglobin 11.8 GM/DL Hematocrit 34.7 % Mean Corpuscular Volume 94.1 FL Mean Corpuscular Hemoglobin 32.0 PG Mean Corpuscular Hemoglobin 33.9 % Concent Red Cell Distribution Width 12.1 % Platelet Count 198 TH/MM3 Mean Platelet Volume 9.4 FL Neutrophils (%) (Auto) 74.6 % Lymphocytes (%) (Auto) 17.3 % Monocytes (%) (Auto) 5.6 % Eosinophils (%) (Auto) 0.9 % Basophils (%) (Auto) 1.6 % Neutrophils # (Auto) 5.5 TH/MM3 Lymphocytes # (Auto) 1.3 TH/MM3 Monocytes # (Auto) 0.4 TH/MM3 Eosinophils # (Auto) 0.1 TH/MM3 Basophils # (Auto) 0.1 TH/MM3 CBC Comment DIFF FINAL Differential Comment Sodium Level 139 MEQ/L Potassium Level 3.4 MEQ/L Chloride Level 103 MEQ/L Carbon Dioxide Level 27.9 MEQ/L Anion Gap 8 MEQ/L Blood Urea Nitrogen 6 MG/DL Creatinine 0.51 MG/DL Estimat Glomerular Filtration 116 ML/MIN Rate Random Glucose 86 MG/DL Calcium Level 8.2 MG/DL Total Bilirubin 0.5 MG/DL Aspartate Amino Transf 18 U/L (AST/SGOT) Alanine Aminotransferase 15 U/L (ALT/SGPT) Alkaline Phosphatase 138 U/L Total Protein 5.8 GM/DL Albumin 2.5 GM/DL Physical Exam General General Appearance: No Acute Distress, Comfortable Eyes Eye Exam: Pupils Equal, Pupils Reactive, Sclera White, Extraocular Movement Intact Throat Throat Exam: Oral Mucosa [place] & Moist, Oral Pharynx Normal Neck Neck Exam: Neck Supple, Trachea Midline Pulmonary Resp Exam: Clear Bilaterally, Breath Sounds Equal, No Distress Cardiology CV Exam: Regular, Normal Sinus Rhythm Gastrointestinal/Abdomen GI Exam: Soft, Non-Tender, Bowel Sounds Present Integumentary Skin Exam: Clear, Warm, Dry, Intact Extremeties Extremities Exam: No Edema Neurologic Neuro Exam: Alert Neuro Remarks confused/ demented. VTE Prophylaxis VTE Prophylaxis Device: SCDs PUD Prophylasis PUD Prophylaxis: Protonix Assessment/Plan Assessment/Plan ASSESSMENT AND PLAN This is an 81-year-old female with diagnosed with - 1. Altered mental status with urinary and fecal incontinence. CT brain does not show anything acute. Neurology consulted. Neuro checks every 6 hours. Check metabolic workup including YOJANA, ESR, B12, folic acid, TSH, free T4 levels...noted. 2. Mild leukocytosis which has resolved. 3. Anemia. Check iron study, B12 and folic acid level...noted within normal limits. 4. Hypokalemia. We will replace potassium and checked magnesium level....1.3 and then 1.7 will replace. 5. Renal insufficiency which has improved. 6. DVT prophylaxis. SCDs. 7. GI prophylaxis. Protonix 40 mg p.o. daily. 8. discharge planning of elderly patient have dementia and have dementia too unable to take care of her. d/w case window caser. We are going to manage the patient on a daily basis and make recommendations on a daily basis. Check CBC with diff CMP in AM. Carlos Nayak MD January 01, 2017 09:21
[2017-01-01] MEDS: POTASSIUM CHLORIDE 20 MEQ CONTROLLED RELEASE TAB PO ONE ×2 (09:30→10:34)
[2017-01-01 12:00] VITALS: BP 115/57; PULSE 62; RESP 18; TEMP 98.1; O2SAT 96
[2017-01-01] MEDS: cefTRIAXone 1,000 MG/NS 100 ML IV SCH ×2 (13:10)
[2017-01-01] MEDS: POTASSIUM CHLOR 20 MEQ PREMIX 100 ML IV SCH ×3 (13:10→16:26)
[2017-01-01 14:58] LABS: RAPID PLASMA REAGIN SCREEN NON-REACTIVE (NON-REACTVE)
[2017-01-01 16:00] VITALS: BP 110/60; PULSE 60; RESP 18; TEMP 98; O2SAT 95
[2017-01-01 20:00] VITALS: BP 122/70; PULSE 64; PULSE 69; RESP 16; TEMP 97.8; O2SAT 97
[2017-01-02] VITALS: BP 121/67; PULSE 65; RESP 16; TEMP 97.4; O2SAT 97
[2017-01-02] MEDS: HEPARIN SODIUM - SQ 10,000 UNITS/ML VIAL SQ SCH ×2 (06:06→12:43)
[2017-01-02 07:29] LABS: CHLORIDE 106 MEQ/L (98-107); POTASSIUM 3.6 MEQ/L (3.5-5.1); SODIUM (NA) 141 MEQ/L (136-145)
[2017-01-02 07:32] LABS: AUTOMATED NEUTROPHIL # 5.3 TH/MM3 (1.8-7.7); BASOPHIL % 0.5 % (0.0-2.0); EOSINOPHIL # 0.1 TH/MM3 (0-0.4); EOSINOPHIL % 1.5 % (0.0-4.0); HEMATOCRIT 33.5 % (35.0-46.0); HEMO FLAGS DIFF FINAL; LYMPH % 21.6 % (9.0-44.0); LYMPHOCYTE # 1.6 TH/MM3 (1.0-4.8); MEAN CELL VOLUME 94.2 FL (80.0-100.0); MEAN CORPUSCULAR HEMOGLOBIN 31.6 PG (27.0-34.0); MEAN CORPUSCULAR HGB CONC 33.6 % (32.0-36.0); NEUT % 70.4 % (16.0-70.0); PLATELET COUNT 221 TH/MM3 (150-450); RED BLOOD COUNT 3.56 MIL/MM3 (4.00-5.30); RED CELL DISTRIBUTION WIDTH 12.5 % (11.6-17.2); WHITE BLOOD COUNT 7.4 TH/MM3 (4.0-11.0)
[2017-01-02 07:35] LABS: ANION GAP 10 MEQ/L (5-15); BICARBONATE 25.5 MEQ/L (21.0-32.0); BLOOD UREA NITROGEN 8 MG/DL (7-18)
[2017-01-02 07:38] LABS: ALT (GPT) 14 U/L (10-53); AST (GOT) 20 U/L (15-37); GLOMERULAR FILTRATION RATE 111 ML/MIN (>89)
[2017-01-02 07:39] LABS: TOTAL BILIRUBIN ADULT 0.4 MG/DL (0.2-1.0)
[2017-01-02 07:41] LABS: ALKALINE PHOSPHATASE 133 U/L (45-117)
[2017-01-02 08:00] VITALS: BP 139/72; PULSE 66; RESP 16; TEMP 98.2; O2SAT 94
--- NOTE | 2017-01-02 08:46 | HHI.PR ---
Subjective History of Present Illness Patient confused low potassium resolved... d/w RN Myranda..discharge planning of elderly patient have dementia and have dementia too unable to take care of her. Review of Systems Constitutional Constitutional Remarks unable to obtain. Vitals/Results Intake & Output 01/01/17 01/01/17 01/02/17 15:00 23:00 07:00 Intake Total 1905 ml 1005 ml Balance 1905 ml 1005 ml Intake Oral 360 ml 200 ml IV Total 1545 ml 805 ml # Voids 3 2 # Bowel Movements 0 Vital Signs Vital Signs Date Time Temp Pulse Resp B/P Pulse Ox O2 Delivery O2 Flow Rate FiO2 01/02/17 00:00 97.4 65 16 121/67 97 01/01/17 20:00 64 01/01/17 20:00 97.8 69 16 122/70 97 01/01/17 16:00 98.0 60 18 110/60 95 01/01/17 12:00 98.1 62 18 115/57 96 CBC/BMP: 01/02/17 0635 01/02/17 0635 Lab Results Laboratory Tests Test 01/02/17 06:35 White Blood Count 7.4 TH/MM3 Red Blood Count 3.56 MIL/MM3 Hemoglobin 11.2 GM/DL Hematocrit 33.5 % Mean Corpuscular Volume 94.2 FL Mean Corpuscular Hemoglobin 31.6 PG Mean Corpuscular Hemoglobin 33.6 % Concent Red Cell Distribution Width 12.5 % Platelet Count 221 TH/MM3 Mean Platelet Volume 9.2 FL Neutrophils (%) (Auto) 70.4 % Lymphocytes (%) (Auto) 21.6 % Monocytes (%) (Auto) 6.0 % Eosinophils (%) (Auto) 1.5 % Basophils (%) (Auto) 0.5 % Neutrophils # (Auto) 5.3 TH/MM3 Lymphocytes # (Auto) 1.6 TH/MM3 Monocytes # (Auto) 0.4 TH/MM3 Eosinophils # (Auto) 0.1 TH/MM3 Basophils # (Auto) 0.0 TH/MM3 CBC Comment DIFF FINAL Differential Comment Sodium Level 141 MEQ/L Potassium Level 3.6 MEQ/L Chloride Level 106 MEQ/L Carbon Dioxide Level 25.5 MEQ/L Anion Gap 10 MEQ/L Blood Urea Nitrogen 8 MG/DL Creatinine 0.53 MG/DL Estimat Glomerular Filtration 111 ML/MIN Rate Random Glucose 86 MG/DL Calcium Level 8.0 MG/DL Total Bilirubin 0.4 MG/DL Aspartate Amino Transf 20 U/L (AST/SGOT) Alanine Aminotransferase 14 U/L (ALT/SGPT) Alkaline Phosphatase 133 U/L Total Protein 5.4 GM/DL Albumin 2.2 GM/DL Physical Exam General General Appearance: No Acute Distress, Comfortable Eyes Eye Exam: Pupils Equal, Pupils Reactive, Sclera White, Extraocular Movement Intact Throat Throat Exam: Oral Mucosa [place] & Moist, Oral Pharynx Normal Neck Neck Exam: Neck Supple, Trachea Midline Pulmonary Resp Exam: Clear Bilaterally, Breath Sounds Equal, No Distress Cardiology CV Exam: Regular, Normal Sinus Rhythm Gastrointestinal/Abdomen GI Exam: Soft, Non-Tender, Bowel Sounds Present Integumentary Skin Exam: Clear, Warm, Dry, Intact Extremeties Extremities Exam: No Edema Neurologic Neuro Exam: Alert Neuro Remarks confused/ demented. VTE Prophylaxis VTE Prophylaxis Device: SCDs PUD Prophylasis PUD Prophylaxis: Protonix Assessment/Plan Assessment/Plan ASSESSMENT AND PLAN This is an 81-year-old female with diagnosed with - 1. Altered mental status with urinary and fecal incontinence. CT brain does not show anything acute. Neurology consulted. Neuro checks every 6 hours. Check metabolic workup including YOJANA, ESR, B12, folic acid, TSH, free T4 levels...noted. 2. Mild leukocytosis which has resolved. 3. Anemia. Check iron study, B12 and folic acid level...noted within normal limits. 4. Hypokalemia. We will replace potassium and checked magnesium level....1.3 and then 1.7 will replace. 5. Renal insufficiency which has improved. 6. DVT prophylaxis. SCDs. 7. GI prophylaxis. Protonix 40 mg p.o. daily. 8. discharge planning of elderly patient have dementia and have dementia too unable to take care of her. d/w case counter caser. We are going to manage the patient on a daily basis and make recommendations on a daily basis. Check CBC with diff CMP in AM. DC Plan soon when arrangment made by counter caser. Discussed Condition with: Daughter PatfaheemCarlos MD January 02, 2017 08:46
[2017-01-02] MEDS: SODIUM CHLORIDE 0.9% FLUSH 10 ML FLUSH IV FLUSH SCH ×2 (09:00→21:00)
[2017-01-02] MEDS: SODIUM CHLOR 0.9% 1000 ML INJ 1,000 ML IV SCH ×2 (11:00→23:15)
[2017-01-02 12:00] VITALS: BP 198/80; PULSE 79; RESP 20; TEMP 98; O2SAT 98
[2017-01-02] MEDS: cefTRIAXone 1,000 MG/NS 100 ML IV SCH ×2 (12:43)
[2017-01-02 16:00] VITALS: BP 122/68; PULSE 68; RESP 16; TEMP 98.2; O2SAT 98
[2017-01-02 20:00] VITALS: BP 145/69; PULSE 71; PULSE 72; RESP 18; TEMP 98.8; O2SAT 96
[2017-01-03] VITALS: BP 134/67; PULSE 66; RESP 20; TEMP 97.7; O2SAT 99
[2017-01-03 04:00] VITALS: BP 172/74; PULSE 66; RESP 20; TEMP 96.2; O2SAT 95
[2017-01-03] MEDS: HEPARIN SODIUM - SQ 10,000 UNITS/ML VIAL SQ SCH ×2 (04:50→17:30)
[2017-01-03 07:40] LABS: AUTOMATED NEUTROPHIL # 5.6 TH/MM3 (1.8-7.7); BASOPHIL # 0.1 TH/MM3 (0-0.2); BASOPHIL % 0.7 % (0.0-2.0); EOSINOPHIL # 0.2 TH/MM3 (0-0.4); EOSINOPHIL % 1.9 % (0.0-4.0); HEMO FLAGS DIFF FINAL; LYMPH % 22.1 % (9.0-44.0); LYMPHOCYTE # 1.9 TH/MM3 (1.0-4.8); MEAN CELL VOLUME 93.5 FL (80.0-100.0); MEAN CORPUSCULAR HEMOGLOBIN 31.7 PG (27.0-34.0); MEAN CORPUSCULAR HGB CONC 33.9 % (32.0-36.0); MONO % 7.9 % (0.0-8.0); NEUT % 67.4 % (16.0-70.0); PLATELET COUNT 274 TH/MM3 (150-450); RED BLOOD COUNT 3.96 MIL/MM3 (4.00-5.30); RED CELL DISTRIBUTION WIDTH 12.7 % (11.6-17.2); WHITE BLOOD COUNT 8.4 TH/MM3 (4.0-11.0)
[2017-01-03 07:51] LABS: CHLORIDE 105 MEQ/L (98-107); POTASSIUM 3.5 MEQ/L (3.5-5.1); SODIUM (NA) 140 MEQ/L (136-145)
[2017-01-03 08:00] VITALS: BP 179/71; PULSE 75; RESP 20; TEMP 96.7; O2SAT 95
[2017-01-03 08:01] LABS: ANION GAP 11 MEQ/L (5-15); BICARBONATE 23.9 MEQ/L (21.0-32.0)
[2017-01-03 08:02] LABS: BLOOD UREA NITROGEN 6 MG/DL (7-18)
[2017-01-03 08:03] LABS: ALT (GPT) 17 U/L (10-53); AST (GOT) 25 U/L (15-37)
[2017-01-03 08:05] LABS: TOTAL BILIRUBIN ADULT 0.3 MG/DL (0.2-1.0)
[2017-01-03 08:06] LABS: ALKALINE PHOSPHATASE 135 U/L (45-117); GLOMERULAR FILTRATION RATE 125 ML/MIN (>89)
--- NOTE | 2017-01-03 08:33 | PQ ---
Physician Query Response Document PATIENT: GABRIELA GONZALES : 1935 ADMIT DATE: 12/29/2016 4:09 PM DISCH DATE: RESPONDING PROVIDER #: EAhmed QUERY TEXT: Altered Mental Status - Underlying Cause A mental status change is documented in the Medical Record. Please specify the underlying cause Such as: ?Metabolic Encephalopathy ?Toxic Encephalopathy ?Stroke ?Coma ?Delirium ?Other Specify ?Unknown The patient's Clinical Indicators include: WBC 11.1 CACHECTIC W MUSCLE WASTE AND NOT EATING BMI 33.8 K 2.5 12/29 ALBUMIN 3..3 TOTAL PROTEIN 6.9 after electrolyte correction 01/01 ALBUMIN 2.5, T PROTEIN 5.8 Query created by: Hortencia Ventura on 01/01/2017 5:26 PM RESPONSE TEXT: Altered mental status secondary to dementia Electronically signed by: Carlos Nayak MD 01/03/2017 8:29 AM
--- NOTE | 2017-01-03 08:36 | HHI.PR ---
Subjective History of Present Illness Patient confused low potassium resolved... d/w RN Myranda..discharge planning of elderly patient have dementia and have dementia too unable to take care of her. ok to dc to snf today. Review of Systems Constitutional Constitutional Remarks unable to obtain. Vitals/Results Intake & Output 01/02/17 01/02/17 01/03/17 15:00 23:00 07:00 Intake Total 120 ml 1168 ml 60 ml Output Total 1 ml Balance 119 ml 1168 ml 60 ml Intake Oral 120 ml 480 ml 60 ml IV Total 688 ml Stool Total 1 ml # Voids 2 3 2 # Bowel Movements 0 0 Vital Signs Vital Signs Date Time Temp Pulse Resp B/P Pulse Ox O2 Delivery O2 Flow Rate FiO2 01/03/17 04:00 96.2 66 20 172/74 95 01/03/17 00:00 97.7 66 20 134/67 99 01/02/17 20:00 72 01/02/17 20:00 98.8 71 18 145/69 96 01/02/17 16:00 98.2 68 16 122/68 98 01/02/17 12:00 98.0 79 20 198/80 98 CBC/BMP: 01/03/17 0625 01/03/17 0625 Lab Results Laboratory Tests Test 01/03/17 06:25 White Blood Count 8.4 TH/MM3 Red Blood Count 3.96 MIL/MM3 Hemoglobin 12.5 GM/DL Hematocrit 37.0 % Mean Corpuscular Volume 93.5 FL Mean Corpuscular Hemoglobin 31.7 PG Mean Corpuscular Hemoglobin 33.9 % Concent Red Cell Distribution Width 12.7 % Platelet Count 274 TH/MM3 Mean Platelet Volume 8.6 FL Neutrophils (%) (Auto) 67.4 % Lymphocytes (%) (Auto) 22.1 % Monocytes (%) (Auto) 7.9 % Eosinophils (%) (Auto) 1.9 % Basophils (%) (Auto) 0.7 % Neutrophils # (Auto) 5.6 TH/MM3 Lymphocytes # (Auto) 1.9 TH/MM3 Monocytes # (Auto) 0.7 TH/MM3 Eosinophils # (Auto) 0.2 TH/MM3 Basophils # (Auto) 0.1 TH/MM3 CBC Comment DIFF FINAL Differential Comment Sodium Level 140 MEQ/L Potassium Level 3.5 MEQ/L Chloride Level 105 MEQ/L Carbon Dioxide Level 23.9 MEQ/L Anion Gap 11 MEQ/L Blood Urea Nitrogen 6 MG/DL Creatinine 0.48 MG/DL Estimat Glomerular Filtration 125 ML/MIN Rate Random Glucose 75 MG/DL Calcium Level 8.3 MG/DL Total Bilirubin 0.3 MG/DL Aspartate Amino Transf 25 U/L (AST/SGOT) Alanine Aminotransferase 17 U/L (ALT/SGPT) Alkaline Phosphatase 135 U/L Total Protein 5.8 GM/DL Albumin 2.4 GM/DL Physical Exam General General Appearance: No Acute Distress, Comfortable Eyes Eye Exam: Pupils Equal, Pupils Reactive, Sclera White, Extraocular Movement Intact Throat Throat Exam: Oral Mucosa [place] & Moist, Oral Pharynx Normal Neck Neck Exam: Neck Supple, Trachea Midline Pulmonary Resp Exam: Clear Bilaterally, Breath Sounds Equal, No Distress Cardiology CV Exam: Regular, Normal Sinus Rhythm Gastrointestinal/Abdomen GI Exam: Soft, Non-Tender, Bowel Sounds Present Integumentary Skin Exam: Clear, Warm, Dry, Intact Extremeties Extremities Exam: No Edema Neurologic Neuro Exam: Alert Neuro Remarks confused/ demented. VTE Prophylaxis VTE Prophylaxis Device: SCDs PUD Prophylasis PUD Prophylaxis: Protonix Assessment/Plan Assessment/Plan ASSESSMENT AND PLAN This is an 81-year-old female with diagnosed with - 1. Altered mental status with urinary and fecal incontinence. CT brain does not show anything acute. Neurology consulted. Neuro checks every 6 hours. Check metabolic workup including YOJANA, ESR, B12, folic acid, TSH, free T4 levels...noted. 2. Mild leukocytosis which has resolved. 3. Anemia. Check iron study, B12 and folic acid level...noted within normal limits. 4. Hypokalemia. We will replace potassium and checked magnesium level....1.3 and then 1.7 will replace. 5. Renal insufficiency which has improved. 6. DVT prophylaxis. SCDs. 7. GI prophylaxis. Protonix 40 mg p.o. daily. 8. discharge planning of elderly patient have dementia and have dementia too unable to take care of her. d/w case pillowcase sewer. ok to dc to snf today. f/u with pcp/ neurology 1 wek. Discussed Condition with: Daughter Carlos Nayak MD January 03, 2017 08:35 Carlos Nayak MD January 03, 2017 08:35
[2017-01-03] MEDS ORDERED: CEFT500T3 PO (08:37)
[2017-01-03] MEDS ORDERED: POTASSIUM PHOSPHATE/SODIUM PHOSPHATE 250 MG TAB PO ONE (08:45)
[2017-01-03] MEDS: SODIUM CHLORIDE 0.9% FLUSH 10 ML FLUSH IV FLUSH SCH ×2 (08:55→20:49)
[2017-01-03] MEDS: SODIUM CHLOR 0.9% 1000 ML INJ 1,000 ML IV SCH ×2 (09:56→21:30)
[2017-01-03] MEDS: cefTRIAXone 1,000 MG/NS 100 ML IV SCH ×2 (09:56)
[2017-01-03 12:00] VITALS: BP 123/64; PULSE 70; RESP 20; TEMP 97; O2SAT 98
[2017-01-03 16:00] VITALS: BP 134/63; PULSE 70; RESP 18; TEMP 98.1; O2SAT 95
[2017-01-03 20:00] VITALS: BP 148/65; PULSE 65; RESP 16; TEMP 96.8; O2SAT 98
[2017-01-04] VITALS: BP 154/66; PULSE 68; RESP 16; TEMP 95.6; O2SAT 96
[2017-01-04 04:00] VITALS: BP 137/72; PULSE 65; RESP 16; TEMP 95.9; O2SAT 96
[2017-01-04] MEDS: HEPARIN SODIUM - SQ 10,000 UNITS/ML VIAL SQ SCH ×2 (05:00→17:00)
[2017-01-04] MEDS: SODIUM CHLOR 0.9% 1000 ML INJ 1,000 ML IV SCH ×2 (07:30→17:30)
[2017-01-04 08:00] VITALS: BP 137/64; PULSE 60; RESP 18; TEMP 96.5; O2SAT 96
--- NOTE | 2017-01-04 08:13 | HHI.PR ---
Subjective History of Present Illness Patient confused low potassium resolved... d/w RN Myranda..discharge planning of elderly patient have dementia and have dementia too unable to take care of her. ok to dc to snf today. embedded case manager arranging discharge. Review of Systems Constitutional Constitutional Remarks unable to obtain. Vitals/Results Intake & Output 01/03/17 01/03/17 01/04/17 15:00 23:00 07:00 Intake Total 240 ml Balance 240 ml Intake Oral 240 ml # Voids 2 # Bowel Movements 0 Vital Signs Vital Signs Date Time Temp Pulse Resp B/P Pulse Ox O2 Delivery O2 Flow Rate FiO2 01/04/17 04:00 95.9 65 16 137/72 96 01/04/17 00:00 95.6 68 16 154/66 96 01/03/17 20:00 96.8 65 16 148/65 98 01/03/17 16:00 98.1 70 18 134/63 95 01/03/17 12:00 97.0 70 20 123/64 98 CBC/BMP: 01/03/17 0625 01/03/17 0625 Physical Exam General General Appearance: No Acute Distress, Comfortable Eyes Eye Exam: Pupils Equal, Pupils Reactive, Sclera White, Extraocular Movement Intact Throat Throat Exam: Oral Mucosa [place] & Moist, Oral Pharynx Normal Neck Neck Exam: Neck Supple, Trachea Midline Pulmonary Resp Exam: Clear Bilaterally, Breath Sounds Equal, No Distress Cardiology CV Exam: Regular, Normal Sinus Rhythm Gastrointestinal/Abdomen GI Exam: Soft, Non-Tender, Bowel Sounds Present Integumentary Skin Exam: Clear, Warm, Dry, Intact Extremeties Extremities Exam: No Edema Neurologic Neuro Exam: Alert Neuro Remarks confused/ demented. VTE Prophylaxis VTE Prophylaxis Device: SCDs PUD Prophylasis PUD Prophylaxis: Protonix Assessment/Plan Assessment/Plan ASSESSMENT AND PLAN This is an 81-year-old female with diagnosed with - 1. Altered mental status with urinary and fecal incontinence. CT brain does not show anything acute. Neurology consulted. Neuro checks every 6 hours. Check metabolic workup including YOJANA, ESR, B12, folic acid, TSH, free T4 levels...noted. 2. Mild leukocytosis which has resolved. 3. Anemia. Check iron study, B12 and folic acid level...noted within normal limits. 4. Hypokalemia. We will replace potassium and checked magnesium level....1.3 and then 1.7 will replace. 5. Renal insufficiency which has improved. 6. DVT prophylaxis. SCDs. 7. GI prophylaxis. Protonix 40 mg p.o. daily. 8. discharge planning of elderly patient have dementia and have dementia too unable to take care of her. d/w case case work aide. ok to dc to snf today.embedded case manager arranging discharge. f/u with pcp/ neurology 1 akash. Carlos Nayak MD January 04, 2017 08:13
[2017-01-04] MEDS: SODIUM CHLORIDE 0.9% FLUSH 10 ML FLUSH IV FLUSH SCH (08:35)
[2017-01-04 12:00] VITALS: BP 117/61; PULSE 73; RESP 18; TEMP 97.5; O2SAT 94
[2017-01-04] MEDS: cefTRIAXone 1,000 MG/NS 100 ML IV SCH ×2 (12:00)
[2017-01-04 16:00] VITALS: BP 120/64; PULSE 78; RESP 20; TEMP 97.6; O2SAT 94
--- NOTE | 2017-01-05 08:21 | PQ ---
Physician Query Response Document PATIENT: GABRIELA GONZALES : 1935 ADMIT DATE: 12/29/2016 4:09 PM DISCH DATE: 01/04/2017 7:28 PM RESPONDING PROVIDER #: EAhmed QUERY TEXT: Clinical Significance The diagnosis documented below requires documentation to state the clinical significance: Please respond and also state in your next progress note whether the condition is: -- Clinically insignificant -- Clinically significant, and please also state why it is clinically significant -- Unable to determine clinical significance -- Other, please specify The patient's Clinical Indicators include: URINE E COLI 12/30 T 99.4 HR 95 ROCEPHIN IV INITATED 01/01 Query created by: Hortencia Ventura on 01/01/2017 5:33 PM RESPONSE TEXT: Clinically significant on antibiotic at discharge. Electronically signed by: Carlos Nayak MD 01/05/2017 8:17 AM
--- NOTE | 2017-01-05 08:34 | MD ---
cc: ROJAS ORELLANA MD ADMISSION DATE: 12/29/2016 DISCHARGE DATE: 01/04/2017 Okay to discharge the patient to SNF. CONDITION AT THE TIME OF DISCHARGE Satisfactory. ACTIVITY As tolerated. DIET Cardiac diet. ALLERGIES NO KNOWN DRUG ALLERGIES. DISCHARGE MEDICATIONS Include Ceftin 500 mg p.o. twice a day for 7 days. The patient advised to follow up with PCP and neurology. ADMISSION DIAGNOSIS Altered mental status. Fecal and urine incontinence secondary to dementia. CT brain done shows nothing acute. Neurology consulted. The patient was seen by neurology. Checked metabolic workup which shows the patient had a low TIBC, but transferrin was low and ferritin was 498 which was high. The patient had hypophosphatemia which was replaced during hospital stay. The patient has a B12 of 1494, folic acid level 9.0. TSH, free T4 was normal. The patient had hypokalemia during the hospital stay which is improved. The patient had a troponin of 0.6, repeat troponin was 0.03. The patient remained stable. No acute event happened. The patient was seen by neurology. The patient's urine culture grew E-coli sensitive to all antibiotics. The patient was given Rocephin during the hospital stay. HOSPITAL COURSE This is a 81-year female admitted with altered mental status diagnosed with dementia. The patient's CT brain does not show anything acute. Chest x-ray was done and shows nothing acute. The patient remained stable during the hospital stay. The patient had a urinary tract infection, grew E-coli which is sensitive to all the antibiotic. The patient had hypokalemia which was replaced. The patient had hypophosphatemia which was replaced. The patient was discharged in satisfactory condition. Further details in the medical record. The patient's also has dementia and both need to be replaced to the placement so they can live together. dope worker, Aletha was involved and she arranged discharge planning. Please see further details in the medical record. MD CHANCE Sierra/SUNNY /8:43 AM /8:33 AM
== END 2017-01-04 19:28 | DRG 641 ==
LOC: PHED 14:34 → PHEDA 16:09 → PH3B 17:15
PROVIDERS: ADMIT Family Medicine; ATTEND Family Medicine
DX: E86.0 Dehydration (principal); R64 Cachexia; F03.90 Unspecified dementia, unspecified severity, without behavioral disturbance, psychotic disturbance, mood disturbance, and anxiety; N39.0 Urinary tract infection, site not specified; E78.5 Hyperlipidemia, unspecified; R15.9 Full incontinence of feces; E87.6 Hypokalemia; E83.39 Other disorders of phosphorus metabolism; B96.20 Unspecified Escherichia coli [E. coli] as the cause of diseases classified elsewhere; D64.9 Anemia, unspecified; N28.9 Disorder of kidney and ureter, unspecified
CPT/HCPCS: 70450; 71010; 76937; 80048; 80053; 81001; 82140; 82550; 82607; 82728; 82746; 83540; 83550; 83735; 84100; 84439; 84443; 84466; 84484; 85025; 86038; 86592; 87077; 87086; 87186; 93005; J0696; J1644; J3475; J3480; J7030; P9612